=== PATIENT | male | born 1960 | race African-American/Black ===

== ENCOUNTER 2018-02-11 17:03 | Emergency (ER) | payer MEDICAID ==
[~2018-02-11] VITALS: Ht 182.9 cm; Wt 107.0 kg
[2018-02-11] MEDS ORDERED: PHEN100C4 PO (17:12)
[2018-02-11] MEDS ORDERED: IPRATROPIUM/ALBUTEROL 0.5-3(2.5)MG/3ML NEB HHN ONE (17:45)
[2018-02-11] MEDS ORDERED: HYDROCODONE/ACETAMINOPHEN 5/325MG TABLET PO ONE (17:45)
[2018-02-11 18:22] VITALS: BP 152/94
== END 2018-02-11 18:28 | disposition left against medical advice (07) ==
LOC: ER 17:03
DX: S10.83XA Contusion of other specified part of neck, initial encounter (principal); S30.0XXA Contusion of lower back and pelvis, initial encounter; S80.12XA Contusion of left lower leg, initial encounter; R06.2 Wheezing; J45.909 Unspecified asthma, uncomplicated; I10 Essential (primary) hypertension; V43.52XA Car driver injured in collision with other type car in traffic accident, initial encounter; Y93.89 Activity, other specified; Y92.89 Other specified places as the place of occurrence of the external cause; Y99.8 Other external cause status
CPT/HCPCS: 94640; 99283; J7620

== ENCOUNTER 2023-11-22 16:12 | Emergency (ER) | payer MEDICAID ==
[~2023-11-22] VITALS: Ht 181.6 cm; Wt 113.0 kg
[~2023-11-22 16:12] MED LIST: PHEN100C4 PO
[2023-11-22 16:19] VITALS: O2SAT 95
[2023-11-22] MEDS: KETOROLAC 60MG/2ML VIAL IM ONE (17:59)
[2023-11-22] MEDS: MORPHINE SULFATE 4 MG/ML INJ (FOR IV/IM USE) IM ONE (17:59)
[2023-11-22 18:28] VITALS: BP 138/88; PULSE 81; RESP 17; TEMP 98.2
== END 2023-11-22 18:29 | disposition home or self-care (01) ==
LOC: ER 16:12
DX: S13.4XXA Sprain of ligaments of cervical spine, initial encounter (principal); M54.2 Cervicalgia; M25.571 Pain in right ankle and joints of right foot; J45.909 Unspecified asthma, uncomplicated; I10 Essential (primary) hypertension; V49.49XA Driver injured in collision with other motor vehicles in traffic accident, initial encounter; Y93.89 Activity, other specified; Y92.89 Other specified places as the place of occurrence of the external cause; Y99.8 Other external cause status
CPT/HCPCS: 99284; 73610; 96372; J1885; J2270